=== PATIENT | male | born 1975 | race Two or more races ===

== ENCOUNTER 2023-06-12 18:51 | Emergency (ER) | payer OTHER ==
[~2023-06-12] VITALS: Ht 177.8 cm; Wt 95.3 kg
[2023-06-12] MEDS ORDERED: GLUMETZA500 MG PO (19:06)
[2023-06-12] MEDS ORDERED: COZAAR25 MG PO (19:07)
[2023-06-12] MEDS ORDERED: SYNTHROID50 MCG PO (19:07)
== END 2023-06-12 19:54 | disposition home or self-care (01) ==
LOC: ER 18:51
DX: S61.022A Laceration with foreign body of left thumb without damage to nail, initial encounter (principal); W27.0XXA Contact with workbench tool, initial encounter; Y93.89 Activity, other specified; Y92.018 Other place in single-family (private) house as the place of occurrence of the external cause; Z88.0 Allergy status to penicillin; Z88.6 Allergy status to analgesic agent; E11.9 Type 2 diabetes mellitus without complications; Z79.84 Long term (current) use of oral hypoglycemic drugs; E78.00 Pure hypercholesterolemia, unspecified; I10 Essential (primary) hypertension